=== PATIENT | male | born 1950 | race Caucasian/White ===

== ENCOUNTER → 2020-07-03 11:38 | Outpatient (CLI) | payer MEDICARE, OTHER, SELFPAY ==
--- NOTE | 2020-07-03 | DI.MRI.S_ITS ---
PROCEDURE: MR CERVICAL SPINE WO CON INDICATIONS: Other spondylosis with radiculopathy, cervical reg TECHNIQUE: Noncontrast sagittal T1 spin echo and T2 fast spin echo, sagittal STIR, foraminal oblique sagittal T2 fast spin echo, and axial gradient echo or T2 fast spin echo through the cervical spine. COMPARISON: None. FINDINGS: Image quality: Excellent. Alignment and Curvature: There is normal bony alignment. Bone Marrow: Marrow demonstrates normal overall signal. Spinal Cord: Visualized spinal cord has normal size and signal. No cerebellar tonsillar herniation. Regional Soft Tissues: No paravertebral masses. Prevertebral soft tissues are normal in thickness. C2-C3: Posterior disc-osteophyte complex flattens the ventral thecal sac without mass effect upon the cord. Facet and uncovertebral hypertrophy contribute to mild neural foraminal narrowing on the left. No right neural foraminal stenosis. C3-C4: Posterior disc-osteophyte complex flattens the ventral cord. No cord signal abnormality. Facet and uncovertebral hypertrophy contribute to mild neural foraminal stenosis bilaterally. C4-C5: Posterior disc-osteophyte complex flattens the ventral thecal sac without mass effect upon the cord. Facet and uncovertebral hypertrophy contribute to mild bilateral neural foraminal stenosis. C5-C6: Posterior disc-osteophyte complex slightly flattens the ventral cord. Facet and uncovertebral hypertrophy contribute to mild bilateral neural foraminal stenosis. C6-C7: Posterior disc-osteophyte complex flattens the ventral cord. No cord signal abnormality. Facet and uncovertebral hypertrophy contribute to severe left and mild right neural foraminal stenosis. C7-T1: No spinal canal or neural foraminal stenosis. IMPRESSION: Multilevel multifactorial degenerative changes, worst at C6-C7 where there is severe neural foraminal narrowing on the left. Dictated by: Anders López M.D. on 07/04/2020 at 12:04 Approved by: Anders López M.D. on 07/04/2020 at 12:11
== END ==
PROVIDERS: PCP Family Medicine; Referring Provider Orthopaedic Surgery Orthopaedic Surgery of the Spine; Visit Provider Orthopaedic Surgery Orthopaedic Surgery of the Spine
DX: M47.22 Other spondylosis with radiculopathy, cervical region (principal); M48.02 Spinal stenosis, cervical region
CPT/HCPCS: 72141

== ENCOUNTER → 2022-12-31 10:50 | Outpatient (CLI) | payer MEDICARE, OTHER, SELFPAY ==
--- NOTE | 2022-12-31 11:44 | DI.MRI.S_ITS ---
PROCEDURE: MR CERVICAL SPINE WO CON INDICATIONS: SPONDYLOSIS W/RADICULOPATHY CERVICAL REGION TECHNIQUE: Noncontrast sagittal T1 spin echo and T2 fast spin echo, sagittal STIR, foraminal oblique sagittal T2 fast spin echo, and axial gradient echo or T2 fast spin echo through the cervical spine. COMPARISON: [facility], MR, MR CERVICAL SPINE WO CON, 07/03/2020, 13:04. FINDINGS: Image quality: Excellent. Alignment and Curvature: There is normal bony alignment. Bone Marrow: Marrow demonstrates normal overall signal. Spinal Cord: Visualized spinal cord has normal size and signal. No cerebellar tonsillar herniation. Paraspinous Soft Tissues: No paravertebral masses. Prevertebral soft tissues are normal in thickness. C2-C3: Normal appearance. C3-C4: Disc space narrowing posterior disc osteophyte complex results in mild central stenosis. Moderate left and mild right foraminal stenosis. C4-C5: Normal appearance. C5-C6: Normal appearance. C6-C7: Normal appearance. C7-T1: Normal appearance. 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 on 12/31/2022 at 14:45
== END ==
PROVIDERS: PCP Family Medicine; Referring Provider Orthopaedic Surgery Orthopaedic Surgery of the Spine; Visit Provider Orthopaedic Surgery Orthopaedic Surgery of the Spine
DX: M47.22 Other spondylosis with radiculopathy, cervical region (principal); M48.02 Spinal stenosis, cervical region; M50.11 Cervical disc disorder with radiculopathy, high cervical region
CPT/HCPCS: 72141

== ENCOUNTER 2023-10-28 11:20 | Day surgery (SDC) | payer MEDICARE, OTHER, SELFPAY ==
--- NOTE | 2023-10-28 | PATH_ITS ---
[facility] Accession Number: [id number] No. of containers..05 Tissue . 01 Material submitted: . PART A: gastrointestinal site - ANTRUM PART B: esophagus, E-G Junction - GEJ BIOPSY PART C: esophagus - MID ESOPHAGUS PART D: colon - SPLENIC FLEXURE POLYPS PART E: colon - DESCENDING COLON POLYP . 01 Diagnosis: A. GASTRIC ANTRUM, BIOPSY: Gastric antral mucosa with no diagnostic abnormality. No evidence of Helicobacter organisms on H/E stain. Negative for intestinal metaplasia. Negative for dysplasia or malignancy. . B. GASTROESOPHAGEAL JUNCTION, BIOPSY: Squamous mucosa with no diagnostic abnormality. No glandular mucosa present for evaluation. Intraepithelial eosinophils are not increased. Negative for dysplasia and malignancy. . C. MID ESOPHAGUS, BIOPSY: Squamous mucosa with no diagnostic abnormality. Intraepithelial eosinophils are not increased. Negative for dysplasia and malignancy. . D. SPLENIC FLEXURE POLYPS: Tubular adenomas. . E. DESCENDING COLON POLYP: Tubular adenoma. [facility] 10/30/2023 1751 Local . 01 Electronically signed: . Paresh Shin MD, PhD, Pathologist NPI- [id number] . 01 Gross description: . Part A: ANTRUM: Received in formalin are 2 fragment(s) of arita, soft tissue measuring 0.2 x 0.2 x 0.1 cm to 0.4 x 0.2 x 0.2 cm submitted entirely in 1 cassette(s) Part B: GEJ BIOPSY: Received in formalin is 1 fragment(s) of arita, soft tissue measuring 0.2 x 0.2 x 0.1 cm submitted entirely in 1 cassette(s) Part C: MID ESOPHAGUS: Received in formalin are 2 fragment(s) of arita, soft tissue measuring 0.1 x 0.1 x 0.1 cm to 0.2 x 0.2 x 0.1 cm submitted entirely in 1 cassette(s) Part D: SPLENIC FLEXURE POLYPS: Received in formalin are 2 fragment(s) of arita, soft tissue measuring 0.3 x 0.2 x 0.2 cm to 0.6 x 0.5 x 0.4 cm submitted entirely in 1 cassette(s) Part E: DESCENDING COLON POLYP: Received in formalin is 1 fragment(s) of arita, soft tissue measuring 0.5 x 0.5 x 0.4 cm submitted entirely in 1 cassette(s) /CHAS[facility] 10/29/2023 0056 Local . 01 Pathologist provided ICD-10: R10.13, R13.10, D12.3, D12.4 . 01 CPT . 580746, 117679, 126596, 104902, 416097 Specimen Comment: A courtesy copy of this report has been sent to [phone] Performed at: [address] [facility] [address], [place], [place] [id number] MD Grabiel Cartagena MD Phone: [phone]
[2023-10-28 12:49] VITALS: BP 164/71; PULSE 52; RESP 17; TEMP 36.8; O2SAT 100
--- NOTE | 2023-10-28 13:11 | PM.HP.1 ---
History of Present Illness History of Present Illness Date Patient Seen: 10/28/23 Time Patient Seen: 13:12 Chief complaint: EGD/Colonoscopy Narrative: This is a 73-year-old here for EGD and colonoscopy. I reviewed my recent office note. No significant changes. He reports the nifedipine ointment has not really helped with the rectal bleeding and/or pain. [facility] Medical History Prostate cancer Social History Smoking Status: Never smoker alcohol intake: current Meds Home Medications and Allergies Home Medications Medication Instructions Recorded Confirmed Type pantoprazole 20 mg tablet,delayed 20 mg PO DAILY 10/28/23 10/28/23 History release tadalafil 5 mg tablet 5 mg PO DAILY 10/28/23 10/28/23 History tamsulosin 0.4 mg capsule 0.4 mg PO DAILY 10/28/23 10/28/23 History Allergies Allergy/AdvReac Type Severity Reaction Status Date / Time No Known Drug Allergies Allergy Verified 10/28/23 13:01 Review of Systems Review of Systems ROS: Yes All systems reviewed with the patient and are negative except as otherwise documented Exam Vital Signs (past 8 hours): - 10/28/23 12:49 Temperature 98.3 F Pulse Rate 52 L Respiratory Rate 17 Blood Pressure 164/71 H Pulse Oximetry 100 Oxygen Delivery Method Room Air Oxygen Delivery Method Room Air Const General: cooperative HENMT Head: normal to inspection Eyes General: appearance normal, both eyes and all related structures Neck Neck: normal visual inspection Chest Chest: normal inspection of the chest Resp Effort & Inspection: normal respiratory effort Cardio Rate: regular rate GI Inspection: normal to inspection Skin General: no rashes or lesions noted Neuro General: patient alert and patient awake Extrem General: normal to inspection and no pedal edema Psych Appearance: grossly normal Assessment & Plan Assessment & Plan narrative: 73-year-old male with a history of chronic intermittent dysphagia and reflux. He also has been experiencing some rectal bleeding and anorectal pain. EGD and colonoscopy are pursued today. Time-Based Coding :: [TOTAL MINUTES] spent with patient and on the chart (including review of chart, obtaining history, exam, reviewing outside data, placing orders, documenting exam and treatment plan, and counseling patient) on [DATE].
--- NOTE | 2023-10-28 13:13 | PM.PREOP ---
Pre-operative Note Interval Note History & Physical reviewed/Exam performed by Physician: Yes Changes to H&P: No ASA Class (for procedural sedation): II
--- NOTE | 2023-10-28 14:39 | PATH_ITS ---
Note [facility] Accession Number: [id number] TESTS RESULT FLAG UNITS REF RANGE LAB Clinician Provided Cytology Information No. of containers..01 Other (Miscellaneous) Source: ESOPHAGEAL BRUSHING r/o YEAST DIAGNOSIS: ESOPHAGUS, BRUSHING (r/o YEAST). NEGATIVE FOR MALIGNANT CELLS. FUNGAL ORGANISMS ARE PRESENT. Pathologist ICD10: 01 K51.90 Signed out by: Josy Hernandez MD, Pathologist NPI- [id number] Performed by: Antione Matamoros, Patient Access Representative ([facility]) Gross description: RECEIVED: 1 BRUSH WITHOUT ANY FLUID IN ORANGE CAP CONTAINER. VO /VDU 10/29/2023 0646 Local FLAG LEGEND: L-Low Normal,H-High Normal,LL-Alert Low,HH-Alert High <-Panic Low,>-Panic High,A-Abnormal,AA-Critical Abnormal Performed at: 01 [facility] [address] [place] [address] [address] [facility], [place] [address] Grabiel Cartagena MD, Performed at: [address] [facility] [address] [address], [place], [place] [id number] MD Grabiel Cartagena MD Phone: [phone]
--- NOTE | 2023-10-28 15:01 | PM.OP.EC ---
Operative Date/Time/Diagnoses Date of procedure: 10/28/23 Time of procedure: 15:02 Pre-op diagnosis: Dysphagia, GERD, rectal bleeding, rectal pain Post-op diagnosis: same Procedure & Clinicians Study performed: EGD with biopsies, brushing, and balloon dilatation Colonoscopy with hot and cold snare polypectomy Same procedure as scheduled: Yes Indications: Dysphagia, GERD, rectal bleeding, rectal pain Surgeon: Eduardo Mendes Procedure Notes SCOAP/Timeout: Done Procedure in detail: After the risks and benefits were explained, written and verbal informed consent was obtained. The patient was brought into the procedure room and placed into the left lateral decubitus position. Please see anesthesia note for sedation details. The scope was introduced into the mouth through the bite block and advanced under direct visualization to the 2nd portion of the duodenum. The scope was slowly withdrawn carefully examining the mucosa for any defects or lesions. Retroflexed views were accomplished in the stomach. The stomach was decompressed, the scope was then removed from the patient who tolerated the procedure well. The patient was then turned around. A digital rectal examination was accomplished. No masses detected. I did not appreciate fissure today. The scope was introduced into the rectum and advanced to the cecum as identified by the appendiceal orifice and ileocecal valve. The scope was slowly withdrawn to carefully examine the mucosa for any defects or lesions. Multiple direct views were made through the dentate line for exclusion of pathology. The colon was decompressed the scope removed from the patient who tolerated the procedure well. Adult colonoscope Bowel prep adequate Scope withdrawal time: 12 minutes Sedation minutes: 39 Complications: none Impression: 1. Duodenal: This was normal in the bulb through to the 2nd portion. 2. Stomach: Patient had a mild gastropathy and biopsies were taken for exclusion of H pylori from the antrum. Retroflexed views of the LES disclosed a Hill valve grade 4 hiatal hernia. 3. Esophagus: The squamocolumnar junction correlated with the top of the gastric folds. The GE junction was at approximately 45 cm from the incisors. There was a moderate nonobstructing Schatzki's ring identified at the GEJ. No acute inflammation. There was a moderate sliding hiatal hernia evident. I sequentially dilated with a 12-15 mm balloon. After the 15 mm dilatation, there was an appropriate rent in the mucosa consistent with successful dilatation. I additionally elected to take a disruptive biopsy out of the GEJ/Schatzki's. The patient had a mildly tortuous distal esophagus. I took additional midesophageal biopsies to exclude eosinophilic esophagitis. There were some subtle white adherent plaque lesions in the proximal esophagus and a cytology brush was used to send a sample of these in for IDANIA wet prep analysis. 4. Colon: At the splenic flexure there were 2 polyps removed. The smaller was perhaps 5 mm and cold snare was employed. The larger was perhaps 8 mm and hot snare was employed. In the distal descending colon there was a 7 mm sessile polyp removed with hot snare. There was no evidence of any proctitis nor colitis. In the anterior rectum near the dentate line there was evidence of radiation induced telangiectasia. No bleeding was identified. Multiple photographs were taken. Endoscopic diagnosis 1. Moderate-sized hiatal hernia 2. Schatzki's ring status post balloon dilatation to 15 mm and disruptive biopsies 3. Tortuous esophagus 4. Gastropathy 5. Possible proximal esophageal yeast overgrowth 6. Colon polyps 7. Radiation induced rectal telangiectasia Post-procedure Plan for aftercare: 1. Await histology. 2. Await brush results. 3. If yeast is identified, a 2 week course of fluconazole will be indicated. 4. Continue anti-reflux therapy 5. Timing of repeat colonoscopy will be contingent on polyp histology 6. Consider a 6 week trial of 20mL of sucralfate 10% suspension enemas twice daily. 7. Follow up GI clinic Disposition: PACU
[2023-10-28 15:02] VITALS: BP 111/78; PULSE 63; RESP 17; TEMP 36.2; O2SAT 95
[2023-10-28 15:07] VITALS: BP 129/88; PULSE 71; RESP 22; TEMP 36.2; O2SAT 95
[2023-10-28 15:12] VITALS: BP 136/87; PULSE 76; RESP 22; TEMP 36.3; O2SAT 95
== END 2023-10-28 16:02 | disposition home or self-care (01) ==
PROVIDERS: PCP Physician Assistant; Referring Provider Internal Medicine Gastroenterology; Visit Provider Internal Medicine Gastroenterology
PROC: 0DJ08ZZ Inspection of Upper Intestinal Tract, Via Natural or Artificial Opening Endoscopic (ICD-10-PCS; CPT 43235; principal; 2023-10-28 13:00)
PROC: 0DJD8ZZ Inspection of Lower Intestinal Tract, Via Natural or Artificial Opening Endoscopic (ICD-10-PCS; CPT 45378; 2023-10-28 13:00)
DX: K62.5 Hemorrhage of anus and rectum (principal); K21.9 Gastro-esophageal reflux disease without esophagitis; R13.10 Dysphagia, unspecified; K31.9 Disease of stomach and duodenum, unspecified; K44.9 Diaphragmatic hernia without obstruction or gangrene; K22.2 Esophageal obstruction; K62.7 Radiation proctitis; D12.4 Benign neoplasm of descending colon
CPT/HCPCS: 43249; 45385; 43239; J2704